=== PATIENT | female | born 1960 | race Two or more races ===

== ENCOUNTER 2019-07-26 10:44 | Emergency (ER) | payer OTHER, SELFPAY ==
[~2019-07-26] VITALS: Ht 157.5 cm; Wt 56.7 kg
[2019-07-26 10:45] VITALS: BP_SYST 136
--- NOTE | 2019-07-26 10:45 | NUR ---
PATIENT PRESENTED TO ER C/O BODY ACHES. PATIENT A&OX4, SKIN PINK & WARM, AFEBRILE, AMBULATORY TO ER, DENIES N/D/V, PAIN 02/02. PATIENT STATES SHE HAS HAD BODY ACHES WITH FEVER SINCE YESTERDAY, SELF MEDICATED WITH OTC TYLENOL, AT HOME SICK X1 WEEK.
--- NOTE | 2019-07-26 10:45 | NUR ---
Patient to ER bed 7 to gown for evaluation. Side rails up.
--- NOTE | 2019-07-26 11:20 | NUR ---
ER at bedside examining patient.
[2019-07-26 13:20] VITALS: BP_SYST 134
--- NOTE | 2019-07-26 13:20 | NUR ---
Patient given written and verbal discharge instructions and verbalizes understanding. ER MD discussed with patient the results and treatment provided. Patient in stable condition. ID arm band removed. Rx PREDNISONE & MOTRIN given. Patient educated on pain management and to follow up with PMD. Pain Scale 3/10 . Opportunity for questions provided and answered. Medication side effect fact sheet provided.
== END 2019-07-26 13:20 | disposition other institution (70) ==
LOC: SED 10:44 → STU 13:20 → EEVIPCON 13:28 → UNDOADMIN 13:28 → STU 13:28 → UNDODISIN 23:15
DX: J11.1 Influenza due to unidentified influenza virus with other respiratory manifestations (principal); R05 Cough; I10 Essential (primary) hypertension; Z90.49 Acquired absence of other specified parts of digestive tract; Z03.818 Encounter for observation for suspected exposure to other biological agents ruled out
CPT/HCPCS: 36415; 71045; 86710; 99284; U0002

== ENCOUNTER 2019-07-29 10:07 | Emergency (ER) | payer OTHER ==
[~2019-07-29] VITALS: Ht 157.5 cm; Wt 59.0 kg
[2019-07-29 10:07] VITALS: BP_SYST 144
--- NOTE | 2019-07-29 10:07 | NUR ---
Patient to ER tent for evaluation.
--- NOTE | 2019-07-29 10:08 | NUR ---
Patient is awake, alert, and oriented x4. She came to ER for evaluation from home. She was unable to ambulate, needed wheelchair assistance, which is not baseline. She is complaining of nausea, vomiting, headache, back pain, SOB, fever (101 axillary) since this morning. Her had a positive lab result for COIVD-19 as of yesterday.
--- NOTE | 2019-07-29 10:24 | NUR ---
ER Dr. Kirk at bedside examining patient.
[2019-07-29 11:05] VITALS: BP_SYST 138
--- NOTE | 2019-07-29 11:05 | NUR ---
Patient given written and verbal discharge instructions and verbalizes understanding. ER MD discussed with patient the results and treatment provided. Patient in stable condition. ID arm band removed. Rx of prednisone, tylenol, albuterol, zithromax given. Patient educated on pain management and to follow up with PMD. Pain Scale 5/10, MD is aware. Opportunity for questions provided and answered. Medication side effect fact sheet provided.
== END 2019-07-29 11:05 | disposition home or self-care (01) ==
LOC: SED 10:07
DX: J09.X2 Influenza due to identified novel influenza A virus with other respiratory manifestations (principal); J40 Bronchitis, not specified as acute or chronic; I10 Essential (primary) hypertension
CPT/HCPCS: 99283

== ENCOUNTER 2019-08-03 11:08 | Inpatient (IN) | payer OTHER, SELFPAY ==
[~2019-08-03] VITALS: Ht 157.5 cm; Wt 69.9 kg
--- NOTE | 2019-08-03 11:15 | NUR ---
PATIENT TO ER #8, NEGATIVE PRESSURE ROOM; ISOLATION
--- NOTE | 2019-08-03 11:30 | NUR ---
DR VELASQUEZ IN TO ASSESS. PT ANXIOUS AND COOPERATIVE
--- NOTE | 2019-08-03 11:35 | NUR ---
RECIVED REPORT, MAN BIB HER SON FROM HOME. SHE C/O SIGNIFICANT INCREASE IN SOB AND CP TODAY. SHE HAS HAD CP/SOB FOR 2 WEEKS. SHE REPORTS TESTED NEGATIVE FOR COVID. SHE ALSO REPORTED THAT HER HAS TESTED POSITIVE FOR COVID. SHE IS CALM, DYSPNEIC, RESP TACHYPNEIC. COMMUNICATES IN BRIEF SHORT SENTENCES. AAOX3, COMMUNICATES CLEARLY BUT ESL. SKIN WARM DRY, GOOD COLOR. AMBULATED WITH DIFFICULTY AND UNSTEADILY.
[2019-08-03 12:02] VITALS: BP_SYST 150
[2019-08-03 12:16] LABS: BASOPHILS % (AUTO) 0.2 % (0.0-2.0); HEMATOCRIT 38.8 % (36-48); HEMOGLOBIN 13.4 g/dL (12.0-16.0); LYMPHOCYTES % (AUTO) 12.2 % (20.5-51.5); MEAN CORPUSCULAR HEMOGLOBIN 30 pg (27-31); MEAN CORPUSCULAR HGB CONC 34 % (32-36); MEAN CORPUSCULAR VOLUME 86 fL (79.0-98.0); MONOCYTES # (AUTO) 0.3 K/uL (0.0-1.0); MONOCYTES % (AUTO) 2.9 % (1.7-9.3); NEUTROPHILS # (AUTO) 7.3 K/uL (1.8-7.7); NEUTROPHILS % (AUTO) 84.7 % (40.0-70.0); PLATELET COUNT (AUTO) 256 K/uL (130-430); RED CELL DISTRIBUTION WIDTH 12.2 % (9.0-15.0); WHITE BLOOD COUNT (AUTO) 8.6 K/uL (4.8-10.8)
[2019-08-03 12:30] LABS: CALCIUM 8.3 mg/dL (8.4-11.0); CREATININE 0.95 mg/dL (0.55-1.30); POTASSIUM 3.1 mmol/L (3.5-5.1)
[2019-08-03 12:35] LABS: ALBUMIN 3.1 g/dL (3.4-4.8); TOTAL BILIRUBIN 0.9 mg/dL (0.0-1.0)
[2019-08-03 12:45] LABS: PROTHROMBIN TIME 10.5 SECS (9.5-12.5)
[2019-08-03] MEDS ORDERED: POTASSIUM CHLORIDE 20 MEQ TAB.PRT.SR PO ONE (14:15)
[2019-08-03] MEDS ORDERED: HYDROXYCHLOROQUINE SULFATE 200 MG TABLET PO ONE (14:15)
[2019-08-03] MEDS ORDERED: AZITHROMYCIN 500 MG in NS 250 ML IV ONE (14:15)
--- NOTE | 2019-08-03 14:15 | NUR ---
ORDERS RECEIVED FOR ADMISSION TO TELE FOR COVID PNA NO CHANGE IN PT CONDITION, CALM, ALERT, RESP UNLABORED. COMMUNICATES CLEARLY IN FULL COMPLETE SENTENCES
[2019-08-03] MEDS ORDERED: AZITHROMYCIN 500 MG/VIAL (ZITHROMAX) IV ONE (14:40)
[2019-08-03] MEDS ORDERED: cefTRIAXone 1 GM in D5W 50 ML IV ONE (15:00)
--- NOTE | 2019-08-03 15:44 | NUR ---
DR PARSON ADMISSION. PT MEDICATED FOR COVID NO CHANGE IN CONDITION, BED PENDING. ALERT, CALM, RESP TACHY, SKIN WARM AND DRY.PT AWARE OF ADMIT
[2019-08-03] MEDS ORDERED: ONDANSETRON HCL 4 MG/2 ML VIAL IVP ONE (16:00)
--- NOTE | 2019-08-03 16:14 | NUR ---
UP TO BSC, N,V,D. AWARE. PT VOMITING BILE, WATERY STOOL. BED ASSIGNMENT PENDING
[2019-08-03] MEDS ORDERED: cefTRIAXone 1 GM VIAL ONE (16:41)
--- NOTE | 2019-08-03 16:50 | NUR ---
Patient will be admitted to care of [facility]. Admitted to 125A unit. Will go to room 125A. Belongings list completed. Complete and up to date summary report printed. SBAR report to be given at bedside with opportunity for questions.
--- NOTE | 2019-08-03 17:00 | NUR ---
Admission Note Received patient from ER with diagnosis of Covid Pna. Initial Plan of Care discussed-patient verbalized understanding.Placed on contact/droplet isolation.Put on telemetry. Oriented to room, call light, pain management and safety.
[2019-08-03 18:07] VITALS: BP_SYST 113
--- NOTE | 2019-08-03 19:00 | NUR ---
Peter Owens s/w Jamir
--- NOTE | 2019-08-03 19:00 | NUR ---
End of shift: Patient resting. Maintained contact/droplet isolation precaution.Covid pcr pending. Waiting for Md to order diet. Call light with in reach. Bed locked at lowest position. Condition guarded.
--- NOTE | 2019-08-03 19:05 | NUR ---
OPENING NOTES Patient is resting, no signs of acute respiratory distress observed. IV site patent, dressings c/d/i. Call light within reach, received orders of NPO, Normal saline to run at 75. Bed alarm refused after patient explained the use of call light and bed alarm. Patient verbalizes use of call light and demonstrates. Commode at bedside. Will continue to monitor.
[2019-08-03 20:00] VITALS: BP_SYST 114
--- NOTE | 2019-08-03 21:20 | NUR ---
Patient is resting, no signs of distress observed. Patient states no nausea or pain at this time. Will continue to monitor. Addendum: 08/04/19 at 0642 by Kurt Isaac RN Airborne precautions to be kept throughout shift.
[2019-08-03] MEDS: NACL 0.9% 1,000 ML IV SCH (21:57)
--- NOTE | 2019-08-03 23:44 | NUR ---
Consultation Paged Reason for Consultation: COVID PNA Was consult called: Y Person who was notified: Sunshine Consulting Physician: Dr. Limon Numerical Control Router Operator Ordering Physician: Dr. Haq
[2019-08-04] VITALS: BP_SYST 113
--- NOTE | 2019-08-04 00:30 | NUR ---
Patient is resting, no signs of distress observed, assisted patient to restroom. Commode at bedside. No distress observed but requires assistance. Will continue to monitor.
--- NOTE | 2019-08-04 04:16 | NUR ---
Patient is resting, no signs of acute respiratory distress observed, 94% O2 saturation on room air. Will continue to monitor.
--- NOTE | 2019-08-04 05:48 | NUR ---
Consult Paged for Dr. Banegas, re: COVID PNA, ordered by Dr. Haq
--- NOTE | 2019-08-04 06:34 | NUR ---
CLOSING NOTES Patient is resting, no signs of acute respiratory distress observed, room air and 96% O2 saturation. IV site patent, dressings c/d/i. IVF running. Call light within reach, bed alarm refused per patient request after patient verbalized usage of call light. Bed at lowest position, commode near bedside. All needs met throughout shift. Will endorse care to oncoming shift.
--- NOTE | 2019-08-04 08:00 | NUR ---
Initial notes: Patient is sleeping, vital signs were stable, she states she is not hungry but was motivated to drink her electrolyte supplement. Her BP medication was withheld due to her borderline low BP. She shows no signs of distress at this moment. IV line is running NS at 75ml/hr. She is ambulatory and used bed side commode for needs without difficulty. Bed is low, locked, 2 side rails up and call light is within reach. Keysha FRAGOSO
[2019-08-04] MEDS: cefTRIAXone 1 GM in D5W 50 ML IV SCH (08:48)
[2019-08-04] MEDS: AZITHROMYCIN 500 MG in NS 250 ML IV SCH (08:48)
--- NOTE | 2019-08-04 08:51 | NUR ---
Nutrition Update Amadeo Scale 18 noted. Pt admitted for COVID PNEUMONIA. Diet: clear liquid BMI: 28.2 kg/m2 RD to follow per nutrition care standards.
[2019-08-04 08:56] VITALS: BP_SYST 99
[2019-08-04] MEDS: METOPROLOL SUCCINATE 25 MG TAB.SR.24H (TOPROL XL) PO SCH (09:00)
[2019-08-04] MEDS ORDERED: ASCORBIC ACID 500 MG TABLET PO ONE (09:30)
[2019-08-04] MEDS ORDERED: HYDROXYCHLOROQUINE SULFATE 200 MG TABLET PO ONE (09:30)
--- NOTE | 2019-08-04 10:00 | NUR ---
IV and PO antibiotics along with other meds were given to patient. She is not showing any kind of distress. Bed is low, locked, 2 side rails up and call light is within reach. Keysha FRAGOSO
[2019-08-04] MEDS: NACL 0.9% 1,000 ML IV SCH ×2 (10:22→22:22)
--- NOTE | 2019-08-04 12:10 | NUR ---
Patient is sleeping, there are no signs of distress. Bed is low, locked, 2 side rails up and call light is within reach. Keysha FRAGOSO
[2019-08-04 12:56] VITALS: BP_SYST 110
--- NOTE | 2019-08-04 14:21 | NUR ---
pATIENT Addendum: 08/04/19 at 1425 by Cierra Gomes RN Patient is in room, presents no new complaints. She is not showing any signs of distress. Bed is low, locked, 2 side rails up and call light is within reach. Keysha FRAGOSO
[2019-08-04 16:00] VITALS: BP_SYST 117
--- NOTE | 2019-08-04 16:00 | NUR ---
Patient is sleeping in bed, presents no new complaints, no signs of distress, vitals have been stable. Bed is low, locked, 2 side rails up and call light is within reach. Keysha FRAGOSO
--- NOTE | 2019-08-04 18:14 | NUR ---
Closing notes: Patients vitals have been stable, she has shown no signs of distress of any kind, no cough or fever today. All IV/PO meds given without any problem, currently infusing NS at 75ml/hr. She is ambulatory and goes to the bedside commode without any problem. She is alert and oriented times 3. said she may go home and self-quarantine at home, order has not been received yet. Report will be given to the bar pilot nurse. Bed is low, locked, 2 side rails up and call light is within reach. Keysha FRAGOSO
--- NOTE | 2019-08-04 19:10 | NUR ---
OPENING NOTES Patient is resting, no signs of acute respiratory distress observed. Iv site patent, dressings c/d/i, IV fluids running. Covid precautions to be in place throughout shift, bed alarm refused after explaining to patient uses and benefits, patient verbalizes understanding, call light within reach, bed at lowest position, commode at bedside. Will continue to monitor.
[2019-08-04 20:00] VITALS: BP_SYST 111
--- NOTE | 2019-08-04 20:03 | NUR ---
Patient is resting, no signs of distress observed. IVF changed, patient is tolerating well. Will continue to monitor.
--- NOTE | 2019-08-04 22:11 | NUR ---
Patient is resting, no signs of shortness of breath. Will continue to monitor.
[2019-08-04] MEDS: HYDROXYCHLOROQUINE SULFATE 200 MG TABLET PO SCH (22:17)
[2019-08-04] MEDS: ASCORBIC ACID 500 MG TABLET PO SCH (22:17)
[2019-08-05] VITALS: BP_SYST 103
--- NOTE | 2019-08-05 00:05 | NUR ---
Patient is resting, no signs of shortness of breath, patient used commode at bedside. Will continue to monitor.
--- NOTE | 2019-08-05 03:49 | NUR ---
Patient is resting, no signs of distress observed. Will continue to monitor.
--- NOTE | 2019-08-05 06:15 | NUR ---
CLOSING NOTES Patient is resting, no signs of distress observed. Iv site patent, dressings c/d/i. IV fluids running. Call light within reach, bed alarm refused after patient education provided and patient verbalized understanding. Bed at lowest position. All needs met throughout shift. Will endorse care to oncoming shift.
--- NOTE | 2019-08-05 08:00 | NUR ---
opening notes seen pt in bed, pt is alert and oriented, denies pain, vitals wnl, no fever. pt c/o of nausea. no sob. call light in reach. bed in low position. encouraged to call for assist and pain meds. idania cont to monitor.
[2019-08-05 08:10] VITALS: BP_SYST 127
[2019-08-05] MEDS: cefTRIAXone 1 GM in D5W 50 ML IV SCH (08:15)
[2019-08-05] MEDS: HYDROXYCHLOROQUINE SULFATE 200 MG TABLET PO SCH ×2 (08:15→21:53)
[2019-08-05] MEDS: METOPROLOL SUCCINATE 25 MG TAB.SR.24H (TOPROL XL) PO SCH (08:16)
[2019-08-05] MEDS: ASCORBIC ACID 500 MG TABLET PO SCH ×2 (08:17→21:53)
[2019-08-05] MEDS: AZITHROMYCIN 500 MG in NS 250 ML IV SCH (09:05)
[2019-08-05] MEDS: ONDANSETRON HCL 4 MG/2 ML VIAL IVP PRN ×2 (10:57→21:53)
[2019-08-05 11:15] VITALS: BP_SYST 132
[2019-08-05] MEDS: NACL 0.9% 1,000 ML IV SCH (11:15)
--- NOTE | 2019-08-05 11:16 | NUR ---
PT GIVEN ZOFRAN, NO FEVER.
--- NOTE | 2019-08-05 13:00 | NUR ---
pt in bed, voided, no c/o of nausea this time. pt dis not eat much of her clear liquid breakfast, encouraged to drink more of water and clear ensure. Addendum: 08/05/19 at 1402 by Trae Bowen RN offered to ask md to advance diet. pt stated not yet.
[2019-08-05 16:53] VITALS: BP_SYST 132
--- NOTE | 2019-08-05 16:55 | NUR ---
pt given zofran for nausea. no c/o pain. no sob. pt has no fever.
--- NOTE | 2019-08-05 18:54 | NUR ---
closing: pt has been stable the whole shift, no fever, pt still have sob and tachypneic with activity ( bed to commode and back) though o2 sat remained normal. encouraged pt to do mor deep breathing exercise.
--- NOTE | 2019-08-05 19:25 | NUR ---
RECEIVED REPORT FROM LAB THAT COVID TEST IS POSITIVE. WILL PAGE DR. CARTER TO NOTIFY.
--- NOTE | 2019-08-05 19:44 | NUR ---
Paged Dr. Haq s/w Marguerite
[2019-08-05 20:00] VITALS: BP_SYST 129
--- NOTE | 2019-08-05 20:11 | NUR ---
SPOKE TO , UPDATED ON PATIENT AND COVID TESTING. SAYS THAT HE WILL ALSO TRY CALLING TOMORROW AFTERNOON FOR UPDATE.
--- NOTE | 2019-08-05 20:33 | NUR ---
Paged Dr. Limon s/w Lay
[2019-08-06] VITALS: BP_SYST 118
[2019-08-06] MEDS: NACL 0.9% 1,000 ML IV SCH ×2 (00:56→14:25)
--- NOTE | 2019-08-06 02:00 | NUR ---
Patient is resting, no signs of distress observed. IV fluids running, IV site patent, dressings c/d/i. Call light within reach, patient is comfortable. Will continue to monitor.
[2019-08-06 07:20] LABS: BASOPHILS % (AUTO) 0.4 % (0.0-2.0); EOSINOPHILS # (AUTO) 0.1 K/uL (0.0-0.4); EOSINOPHILS % (AUTO) 3.6 % (0.0-4.0); HEMATOCRIT 32.2 % (36-48); HEMOGLOBIN 11.2 g/dL (12.0-16.0); LYMPHOCYTES # (AUTO) 0.7 K/uL (1.0-5.5); LYMPHOCYTES % (AUTO) 18.9 % (20.5-51.5); MEAN CORPUSCULAR HEMOGLOBIN 30 pg (27-31); MEAN CORPUSCULAR HGB CONC 35 % (32-36); MEAN CORPUSCULAR VOLUME 87 fL (79.0-98.0); MONOCYTES # (AUTO) 0.3 K/uL (0.0-1.0); MONOCYTES % (AUTO) 7.4 % (1.7-9.3); NEUTROPHILS # (AUTO) 2.7 K/uL (1.8-7.7); NEUTROPHILS % (AUTO) 69.7 % (40.0-70.0); PLATELET COUNT (AUTO) 292 K/uL (130-430); RED BLOOD CELL COUNT(AUTO) 3.71 MIL/uL (4.2-6.2); RED CELL DISTRIBUTION WIDTH 12.6 % (9.0-15.0); WHITE BLOOD COUNT (AUTO) 3.9 K/uL (4.8-10.8)
--- NOTE | 2019-08-06 07:31 | NUR ---
CLOSING NOTES Patient is resting, no signs of acute respiratory distress observed, using tablet with reading glasses on. 1.5L NC. IV site patent, dressings c/d/i, IV fluids running, new gown provided, bed valencia emptied. Patient able to ambulate to commode but with shortness of breath, patient still weak. Call light within reach, bed alarm refused after patient verbalized use of call light. Bed at lowest position. All needs met throughout shift. Will endorse care to oncoming shift. Covid precautions maintained throughout shift.
--- NOTE | 2019-08-06 07:33 | NUR ---
SPOKE TO DR. SOTOMAYOR, RELAYED PATIENT'S POSITIVE COVID TESTING, DR. SOTOMAYOR MENTIONED THAT HE KNOWS, PATIENT CAN BE DISCHARGED TOMORROW, BEDREST 7 DAYS, EXPLAINED THAT PATIENT IS STILL WEAK AND HAS NAUSEA AND DIARRHEA AT TIMES, DR. SOTOMAYOR EXPLAINED THAT IT IS EXPECTED PER MEDICATION.
[2019-08-06 07:34] LABS: C-REACTIVE PROTEIN QUANT 3.9 mg/dL (0-0.5); CREATININE 0.61 mg/dL (0.55-1.30)
--- NOTE | 2019-08-06 08:05 | NUR ---
Opening notes Received pt in bed, pt is alert and oriented, denies pain, vitals wnl, no fever. no c/o nausea. no sob. call light in reach. bed in low position. encouraged to call for assist and pain meds. idania cont to monitor.
[2019-08-06 08:42] LABS: POTASSIUM 2.6 mmol/L (3.5-5.1)
[2019-08-06 08:48] VITALS: BP_SYST 125
[2019-08-06] MEDS: cefTRIAXone 1 GM in D5W 50 ML IV SCH (08:56)
[2019-08-06] MEDS: METOPROLOL SUCCINATE 25 MG TAB.SR.24H (TOPROL XL) PO SCH (08:56)
[2019-08-06] MEDS: HYDROXYCHLOROQUINE SULFATE 200 MG TABLET PO SCH ×2 (08:56→20:31)
[2019-08-06] MEDS: ASCORBIC ACID 500 MG TABLET PO SCH ×2 (08:57→20:32)
[2019-08-06] MEDS ORDERED: POTASSIUM CHLORIDE 40 MEQ in NS 250 ML IV ONE (09:15)
[2019-08-06] MEDS: AZITHROMYCIN 500 MG in NS 250 ML IV SCH (10:02)
[2019-08-06 10:54] LABS: ERYTHROCYTE SEDIMENTATION RATE 51 MM/HR (0-20)
[2019-08-06 12:00] VITALS: BP_SYST 130
[2019-08-06] MEDS ORDERED: Zinc Sulfate PO (12:25)
[2019-08-06] MEDS ORDERED: AZIT500T10 PO (12:25)
[2019-08-06] MEDS ORDERED: METO-540 PO (12:25)
[2019-08-06] MEDS ORDERED: HYDR200T38 PO (12:25)
[2019-08-06] MEDS ORDERED: ASCO500T20 PO (12:25)
--- NOTE | 2019-08-06 12:41 | NUR ---
HCP FORM GRADER, JOSÉ GOODEN WAS CALLED RE: REQUEST OF OXYGEN FOR HOME USE. FORM GRADER JOSÉ CALLED THAT HCP 'S UTILIZATION MGMT HAS TO APPROVED THIS ORDER. SHE WILL FORWARD THE ORDER TOMORROW, WEDNESDAY. (CLOSED ON , WEDNESDAY)
--- NOTE | 2019-08-06 12:47 | NUR ---
DR SCHWARTZ SAID IT IS OKAY TO DC PT IN AM (08/07/19) IF O2 IS NOT ARRANGED TODAY.
--- NOTE | 2019-08-06 14:34 | NUR ---
K-RIDER COMPLETED, PT IN BED, NO C/O PAIN, NO SOB, NO NAUSEA.
[2019-08-06 15:51] VITALS: BP_SYST 134
--- NOTE | 2019-08-06 18:41 | NUR ---
CLOSING NOTE PT HAS BEEN STABLE THE WHOLE SHIFT, NO FEVER, PT STILL COMPLAINING OF SOB WHEN GOING TO COMMODE. PT HAS DC HOME ORDER WITH RX AND HOME O2. 02 WAS NOT ARRANGED YET BY DCP OF HCP. DR SCHWARTZ IS AWARE AND SAID IT IS OKAY TO DC PT IN AM. PT HAS NO MORE DIARRHEA. WILL ENDORSE TO NIGHT NURSE.
[2019-08-06 20:00] VITALS: BP_SYST 149
--- NOTE | 2019-08-06 20:00 | NUR ---
AAOX4. IN NO APPARENT DISTRESS. DENIES HAVING ACUTE PAIN. STATES SHE HAD SOME CHEST PAIN EARLIER WHEN SHE WAS COUGHING. ON O2 AT 1.5L/MIN/NC. POX 94%. PT ABLE TO AMBULATE BY SELF TO BEDSIDE COMMODE. INSTRUCTED TO CALL FOR ANY ASSISTANCE NEEDED. PT IS ON AIRBORNE, CONTACT AND DROPLET ISOLATION FOR POSITIVE COVID -19.
--- NOTE | 2019-08-07 | NUR ---
DOZES ON AND OFF. PLEASANT. NO DISTRESS NOTED.
[2019-08-07 00:37] VITALS: BP_SYST 140
--- NOTE | 2019-08-07 02:10 | NUR ---
COVERING FOR FOUZIA VILLANUEVA ON BREAK. PATIENT IV WAS BEEPING. FIXED IV PUMP. PATIENT IS STABLE.
--- NOTE | 2019-08-07 04:00 | NUR ---
SLEPT INTERMITTENTLY. AWAKENED MOMENTARILY FOR BATTERY CHANGE IN TELEMETRY APPLIANCE.
[2019-08-07] MEDS: NACL 0.9% 1,000 ML IV SCH (05:17)
--- NOTE | 2019-08-07 06:00 | NUR ---
RESTING QUIETLY. NO COMPLAINTS OFFERED AT THIS TIME. REMAINS IN GUARDED CONDITION.
--- NOTE | 2019-08-07 07:35 | NUR ---
Initial notes: Patient is alert and oriented x4, she is ambulatory and presents no new complaints. She was positive for covid but she seems more alert and is eating regular food now. She has a 18G RAC that is patent and running IV AB. There is a plan to discharge her sometime today. Bed is low, locked, 2 side rails up and call light is within reach. Keysha FRAGOSO
[2019-08-07 08:00] VITALS: BP_SYST 135
[2019-08-07 08:11] LABS: BASOPHILS % (AUTO) 0.4 % (0.0-2.0); EOSINOPHILS # (AUTO) 0.2 K/uL (0.0-0.4); EOSINOPHILS % (AUTO) 3.2 % (0.0-4.0); HEMATOCRIT 34.9 % (36-48); LYMPHOCYTES # (AUTO) 0.8 K/uL (1.0-5.5); LYMPHOCYTES % (AUTO) 14.9 % (20.5-51.5); MEAN CORPUSCULAR HEMOGLOBIN 30 pg (27-31); MEAN CORPUSCULAR HGB CONC 34 % (32-36); MEAN CORPUSCULAR VOLUME 86 fL (79.0-98.0); MONOCYTES # (AUTO) 0.4 K/uL (0.0-1.0); MONOCYTES % (AUTO) 8.3 % (1.7-9.3); NEUTROPHILS # (AUTO) 3.8 K/uL (1.8-7.7); NEUTROPHILS % (AUTO) 73.2 % (40.0-70.0); PLATELET COUNT (AUTO) 348 K/uL (130-430); RED BLOOD CELL COUNT(AUTO) 4.05 MIL/uL (4.2-6.2); RED CELL DISTRIBUTION WIDTH 12.3 % (9.0-15.0); WHITE BLOOD COUNT (AUTO) 5.2 K/uL (4.8-10.8)
[2019-08-07 08:36] LABS: ALBUMIN 2.4 g/dL (3.4-4.8); CALCIUM 8.2 mg/dL (8.4-11.0); CREATININE 0.72 mg/dL (0.55-1.30); POTASSIUM 3.1 mmol/L (3.5-5.1); TOTAL BILIRUBIN 0.8 mg/dL (0.0-1.0)
[2019-08-07] MEDS: cefTRIAXone 1 GM in D5W 50 ML IV SCH (08:44)
[2019-08-07] MEDS: AZITHROMYCIN 500 MG in NS 250 ML IV SCH (08:45)
[2019-08-07] MEDS: HYDROXYCHLOROQUINE SULFATE 200 MG TABLET PO SCH (08:45)
[2019-08-07] MEDS: ASCORBIC ACID 500 MG TABLET PO SCH (08:46)
[2019-08-07] MEDS: METOPROLOL SUCCINATE 25 MG TAB.SR.24H (TOPROL XL) PO SCH (08:46)
[2019-08-07 08:56] LABS: ERYTHROCYTE SEDIMENTATION RATE 58 MM/HR (0-20)
--- NOTE | 2019-08-07 09:42 | NUR ---
Patient took her medication without any difficulty. She does not present any new compalints. She was instructed to call me should she need anything. Bed is low, locked, 2 side rails up and call light is within reach. Keysha FRAGOSO
[2019-08-07] MEDS ORDERED: POTASSIUM CHLORIDE 20 MEQ TAB.PRT.SR PO ONE (10:30)
--- NOTE | 2019-08-07 11:30 | NUR ---
Patient doing well, her IV infiltrated, started a new IV @22 G on LFA. 40 mEq PO KCL was given today per 's order. Bed is low, locked, 2 side rails are up and call light is within reach. Keysha FRAGOSO
--- NOTE | 2019-08-07 12:52 | NUR ---
PATIENT LATE ENTRY DUE PATIENT CARE 1000 PATIENT IN BED. O2 DISCONTINUED AND PATIENT AMBULATED INSIDE THE ROOM. O2 SAT STAYED AT 94-96% ON ROOM AIR. SOME COUGHING BUT NO SHORTNESS OF BREATH. INSTRUCTED PATIENT TO KEEP OXYGEN OFF AND CONTINUE TO AMBULATE INSIDE THE ROOM TOLERATED
--- NOTE | 2019-08-07 13:44 | NUR ---
Patient doing well, she does not present any new complaints, not in any distress. Bed is low, locked, 2 side rails are up and call light is within reach. Keysha FRAGOSO
[2019-08-07 14:07] VITALS: BP_SYST 134
[2019-08-07 14:34] VITALS: BP_SYST 136
--- NOTE | 2019-08-07 15:00 | NUR ---
Patient doing well, Bed is low, locked, 2 side rails are up and call light is within reach. Keysha FRAGOSO
[2019-08-07 16:00] VITALS: BP_SYST 132
--- NOTE | 2019-08-07 17:45 | NUR ---
D/C: Patient ok'd to discharge per , and . VS were stable and no signs of distress were witnessed. RX already ready in chart and discharge instructions printed to hand out and educate patient. 2 masks were given to patient, one for the patient and one for the armored car guard and driver. She was instructed only to return to the ER should an emergent issue arise such as SOB or signs of infection. She verbalized comprehension and was given time to ask questions. An extra COVID handout was given and read to patient. Keysha FRAGOSO
--- NOTE | 2019-08-08 13:50 | NUR ---
Discharge Follow Up Phone Call Phoned patient, . Patient stated she was doing well. She is feeling much better and was cooking dinner. She has the support of family members. She filled her prescriptions and is taking her medications as directed. She phoned her PCP, Dr Kasper, and will maintain contact by phone. No office visit. No questions or concerns.
== END 2019-08-07 17:35 | disposition home or self-care (01) | DRG 177 ==
LOC: SED 11:08 → EEVIPCON 11:08 → STU 14:12
PROVIDERS: ADMIT Internal Medicine Hospice and Palliative Medicine; ATTEND Internal Medicine Hospice and Palliative Medicine
DX: U07.1 COVID-19 (principal); J12.89 Other viral pneumonia; J96.01 Acute respiratory failure with hypoxia; D72.810 Lymphocytopenia; I10 Essential (primary) hypertension; Z78.9 Other specified health status; Z79.899 Other long term (current) drug therapy
CPT/HCPCS: 36415; 36600; 71045; 80048; 80053; 82803-TC; 83605; 84484; 85025; 85610-TC; 85651-TC; 85730-TC; 86140; 87040-TC; 87081; 93005; 96365; 96367; 96375; 99285; G0378; J0456; J0696; J2405; J3480; J7030; J7050; J7060

== ENCOUNTER 2022-07-18 10:30 | Emergency (ER) | payer OTHER ==
[~2022-07-18] VITALS: Ht 157.5 cm; Wt 60.8 kg
[2022-07-18 10:30] VITALS: BP_SYST 148
[~2022-07-18 10:30] MED LIST: ASCO500T20 PO; AZIT500T10 PO; HYDR200T38 PO; METO-540 PO; Zinc Sulfate PO
--- NOTE | 2022-07-18 10:30 | NUR ---
BROUGHT BACK TO BED #4 AND TRIAGED. REPORT GIVEN TO FLORENTINO
--- NOTE | 2022-07-18 10:35 | NUR ---
DR. LITTLE AT BEDSIDE TO ASSESS PT.
--- NOTE | 2022-07-18 10:35 | NUR ---
RECEIVED PT FROM FOUZIA GARCIA. ASSUMED CARE. PT BIB WITH C/O ABDOMINAL PAIN X 2-3 WEEKS. ABDOMEN SOFT, NONTENDER, NONDISTENDED. DENIES N/V/C/D. SKIN WARM, CDI, NO EDEMA. SIDERAILS UP X2.
--- NOTE | 2022-07-18 11:35 | NUR ---
BLOOD OBTAINED AND TAKEN TO LAB, CXR COMPLETED.
[2022-07-18 11:41] LABS: BILIRUBIN,URINE NEGATIVE (NEGATIVE); BLOOD, URINE NEGATIVE (NEGATIVE); CLARITY/URINE CLEAR (CLEAR); COLOR,URINE YELLOW (YELLOW); GLUCOSE,URINE NEGATIVE (NEGATIVE); KETONES,URINE NEGATIVE (NEGATIVE); LEUKOCYTE ESTERASE ,URINE 1+ (NEGATIVE); NITRITE, URINE NEGATIVE (NEGATIVE); PROTEIN URINE NEGATIVE (NEGATIVE); UROBILINOGEN,URINE 0.2 (0.2-1.0)
[2022-07-18 11:50] LABS: BACTERIA,URINE RARE /HPF (None Seen); RBC,URINE 0-3 /HPF (0-3); WBC,URINE 0-3 /HPF (0-3)
[2022-07-18 11:51] LABS: BASOPHILS % (AUTO) 0.4 % (0.0-2.0); EOSINOPHILS # (AUTO) 0.2 K/uL (0.0-0.4); HEMATOCRIT 40.2 % (36-48); HEMOGLOBIN 13.5 g/dL (12.0-16.0); LYMPHOCYTES # (AUTO) 1.4 K/uL (1.0-5.5); LYMPHOCYTES % (AUTO) 23.9 % (20.5-51.5); MEAN CORPUSCULAR HEMOGLOBIN 29 pg (27-31); MEAN CORPUSCULAR HGB CONC 34 % (32-36); MEAN CORPUSCULAR VOLUME 86 fL (79.0-98.0); MONOCYTES # (AUTO) 0.4 K/uL (0.0-1.0); NEUTROPHILS % (AUTO) 66.7 % (40.0-70.0); PLATELET COUNT (AUTO) 204 K/uL (130-430); RED BLOOD CELL COUNT(AUTO) 4.66 MIL/uL (4.2-6.2); RED CELL DISTRIBUTION WIDTH 12.6 % (9.0-15.0)
[2022-07-18 12:10] LABS: ANION GAP 7 (5-15); CALCIUM 8.6 mg/dL (8.4-11.0); CHLORIDE 104 mmol/L (98-107); GFR AFRICAN AMERICAN 131 mL/min (>90); GLUCOSE 98 mg/dL (70-99); UREA NITROGEN, BLOOD 8 mg/dL (8-21)
[2022-07-18 12:16] LABS: ALANINE AMINOTRANSFERASE 36 U/L (12-78); ALBUMIN 3.6 g/dL (3.4-4.8); ASPARTATE AMINOTRANSFERASE 22 U/L (10-37); LIPASE 97 U/L (73-393); TOTAL BILIRUBIN 1.5 mg/dL (0.0-1.0)
[2022-07-18] MEDS ORDERED: FAMO20TA8 PO (13:04)
[2022-07-18] MEDS ORDERED: SUCR1TAB2 PO (13:04)
[2022-07-18 13:49] VITALS: BP_SYST 135
--- NOTE | 2022-07-18 13:52 | NUR ---
Patient given written and verbal discharge instructions and verbalizes understanding. ER MD discussed with patient the results and treatment provided. Patient in stable condition. ID arm band removed. PEPCID, CARAFATE PRESCRIPTION GIVEN TO PT. Patient educated on pain management and to follow up with PMD. Pain Scale 2/10 TO ABDOMEN. Opportunity for questions provided and answered. Medication side effect fact sheet provided.
== END 2022-07-18 13:52 | disposition home or self-care (01) ==
LOC: SED 10:30
DX: K27.9 Peptic ulcer, site unspecified, unspecified as acute or chronic, without hemorrhage or perforation (principal); R10.9 Unspecified abdominal pain; I10 Essential (primary) hypertension; Z79.899 Other long term (current) drug therapy
CPT/HCPCS: 36415; 71045; 80053; 81000; 83690; 84484; 85025; 93005; 99285